=== PATIENT | female | born 1945 | race Caucasian/White ===

== ENCOUNTER 2017-12-23 11:40 | Emergency (ER) | payer OTHER ==
[2017-12-23 11:49] VITALS: BP 118/63; PULSE 59; TEMP 97.5; BMI 25.8
[2017-12-23] MEDS ORDERED: ALBUTEROL SO4 2.5/IPRATROPIUM 0.5 INH SOL 3 ML VIAL.NEB. NEB ONE ×2 (13:03→13:21)
--- NOTE | 2017-12-23 13:13 | PDOC ---
History of Present Illness - General Chief Complaint: Cold Symptoms Stated Complaint: COUGH, DIARRHEA Time Seen by Provider: 12/23/17 12:50 Exam Limitations: Language Barrier ([employer] [id number]) - History of Present Illness Initial Comments: 12/23/17 13:04 72 yr female history of high cholesterol, hypothyroid, HTN presents with one week cough worse at night. no fever no chest or abd pain. Pt saw her PMD 3 times last week was given mucinex and flonase with some relief. Pt states she smoked in the past quit 30 yrs ago. Severity: reports: mild Past History - Past Medical History Allergies/Adverse Reactions: Allergies Allergy/AdvReac Type Severity Reaction Status Date / Time No Known Allergies Allergy Verified 12/23/17 11:43 Home Medications: Ambulatory Orders Albuterol Sulfate Inhaler - [Ventolin HFA Inhaler -] 1 - 2 inh PO Q4H #1 inhaler 12/23/17 Albuterol Sulfate Inhaler - [Ventolin HFA Inhaler -] 1 - 2 inh PO Q4H #1 inhaler 12/23/17 Azithromycin [Zithromax 250mg Tablets -] 250 mg PO UTDICT #6 tab 12/23/17 Azithromycin [Zithromax 250mg Tablets -] 250 mg PO UTDICT #6 tab 12/23/17 Benzonatate [Tessalon Pearls -] 100 mg PO TID #21 capsule 12/23/17 Benzonatate [Tessalon Pearls -] 100 mg PO TID PRN #21 capsule 12/23/17 COPD: No HTN: Yes Hypercholesterolemia: Yes Thyroid Disease: Yes - Suicide/Smoking/Psychosocial Hx Smoking History: Never smoked Have you smoked in the past 12 months: No Information on smoking cessation initiated: No Hx Alcohol Use: No Drug/Substance Use Hx: No Substance Use Type: None Respiratory Specific PMHX - Complaint Specific PMHX Angina: No Bronchitis: No Pneumonia: No Pulmonary Embolus: No TB (Tuberculosis): No Review of Systems - Review of Systems Able to Perform ROS?: Yes Is the patient limited Jamaican proficient: Yes Constitutional: No: Symptoms Reported HEENTM: No: Symptoms Reported Respiratory: Yes: Cough Cardiac (ROS): No: Symptoms Reported ABD/GI: No: Symptoms Reported : No: Symptoms Reported Musculoskeletal: No: Symptoms Reported Integumentary: No: Symptoms Reported *Physical Exam - Vital Signs Last Vital Signs Temp Pulse Resp BP Pulse Ox 97.5 F L 59 L 18 118/63 100 12/23/17 11:44 12/23/17 11:44 12/23/17 11:44 12/23/17 11:44 12/23/17 11:44 - Physical Exam General Appearance: Yes: Nourished, Appropriately Dressed HEENT: positive: EOMI, PIPPA, Normal ENT Inspection, Pharynx Normal Neck: positive: Supple. negative: Lymphadenopathy (R), Lymphadenopathy (L) Respiratory/Chest: positive: Normal Breath Sounds, Crackles. negative: Chest Tender Cardiovascular: positive: Regular Rhythm, Regular Rate Gastrointestinal/Abdominal: positive: Normal Bowel Sounds, Soft Musculoskeletal: positive: Normal Inspection Extremity: positive: Normal Capillary Refill, Normal Inspection, Normal Range of Motion Integumentary: positive: Normal Color, Dry, Warm Neurologic: positive: director digital II-XII NML intact, Alert, Normal Mood/Affect, Normal Response, Motor Strength 5/5 ED Treatment Course - RADIOLOGY Radiology Studies Ordered: Category Date Time Status CHEST PA & LAT [RAD] Stat Radiology 12/23/17 13:03 Ordered Medical Decision Making - Medical Decision Making 12/23/17 13:06 cc: cough for one week worse at night no shortness of breath afebrile non toxic will get CXR to r/o pneumonia 12/23/17 13:49 12/23/17 14:50 negative for pneumonia pt feels better after the nebulizer pt speaking full sentences will dc home with strict follow up inst given in [place] pt and her friend have been given the dc instructions all questions asked and answered at discharge *DC/Admit/Observation/Transfer Diagnosis at time of Disposition: Bronchitis - Discharge Dispostion Disposition: HOME Condition at time of disposition: Good - Prescriptions Prescriptions: Albuterol Sulfate Inhaler - [Ventolin HFA Inhaler -] 1 - 2 inh PO Q4H #1 inhaler Albuterol Sulfate Inhaler - [Ventolin HFA Inhaler -] 1 - 2 inh PO Q4H #1 inhaler Azithromycin [Zithromax 250mg Tablets -] 250 mg PO UTDICT #6 tab Azithromycin [Zithromax 250mg Tablets -] 250 mg PO UTDICT #6 tab Benzonatate [Tessalon Pearls -] 100 mg PO TID PRN #21 capsule PRN Reason: Cough Benzonatate [Tessalon Pearls -] 100 mg PO TID #21 capsule - Referrals Referrals: Nazario Ricketts MD [Primary Care Provider] - - Patient Instructions Printed Discharge Instructions: DI for Acute Bronchitis Additional Instructions: drink pleanty of fluids get pleanty of rest take the medications as prescribed follow with your provider in 2-3 days for follow up beber mucho lquido Descanse mucho paulina los medicamentos segn lo prescrito - Post Discharge Activity
== END 2017-12-23 14:20 | disposition home or self-care (01) ==
LOC: JERFT 11:40
PROC: 3E0F7GC Introduction of Other Therapeutic Substance into Respiratory Tract, Via Natural or Artificial Opening (ICD-10-PCS; principal; 2017-12-23)
DX: J40 Bronchitis, not specified as acute or chronic (principal); I10 Essential (primary) hypertension; E78.00 Pure hypercholesterolemia, unspecified; E03.9 Hypothyroidism, unspecified
CPT/HCPCS: 71046-TC-FY; 94640; 99281-25